=== PATIENT | female | born 1970 | race Caucasian/White ===

== ENCOUNTER 2018-10-29 10:33 | Emergency (ER) | payer OTHER ==
[~2018-10-29] VITALS: Ht 165.1 cm; Wt 72.6 kg
[2018-10-29 11:45] LABS: BASOPHILS ABSOLUTE AUTO 0.05 K/mm3 (0.00-0.23); BASOPHILS PERCENT AUTO 0 % (0-2); EOSINOPHILS ABSOLUTE AUTO 0.11 K/mm3 (0.00-0.68); EOSINOPHILS PERCENT AUTO 1 % (0-6); Hematocrit 40.1 % (33.0-51.0); Hemoglobin 12.9 g/dL (11.5-16.0); IMMATURE GRAN ABSOLUTE AUTO 0.06 K/mm3 (0.00-0.10); IMMATURE GRAN PERCENT AUTO 1 % (0-1); LYMPHOCYTES PERCENT AUTO 13 % (21-46); MONOCYTES ABSOLUTE AUTO 1.37 K/mm3 (0.16-1.47); MONOCYTES PERCENT AUTO 11 % (4-13); Mean Corpuscular HGB 30.3 pg (26.0-34.0); Mean Corpuscular HGB Conc 32.2 g/dL (31.5-36.5); Mean Corpuscular Volume 94 fL (80-100); Mean Platelet Volume 10.1 fL (9.1-12.4); NEUTROPHILS ABSOLUTE AUTO 8.89 K/mm3 (1.96-9.15); NEUTROPHILS PERCENT AUTO 74 % (41-73); Platelet Count 358 K/mm3 (150-400); RDW Coefficient Variation 13.2 % (11.7-14.2); RDW Standard Deviation 46.1 fL (35.1-46.3); Red Blood Cell Count 4.26 M/mm3 (3.80-5.20); White Blood Cell Count 11.98 K/mm3 (4.00-11.30)
[2018-10-29 12:07] LABS: Alanine Aminotransfer (ALT/SGP 26 U/L (12-78); Albumin, Blood 2.7 g/dL (3.4-5.0); Albumin/Globulin Ratio 0.7 (0.8-1.8); Alk Phos 80 U/L (50-136); Anion Gap 4 mmol/L (6-16); Aspartate Aminotrans (AST/SGOT 14 U/L (12-37); Bilirubin, Total 0.3 mg/dL (0.1-1.0); Blood Urea Nitrogen 12 mg/dL (8-24); Bun/Creatinine Ratio 16.3 (12.0-20.0); CO2, Blood 28 mmol/L (21-32); Calcium, Blood 8.3 mg/dL (8.5-10.1); Chloride, Blood 106 mmol/L (98-108); Creatinine, Blood 0.74 mg/dL (0.40-1.00); Globulin, Blood 3.8 g/dL (2.2-4.0); Glomerular Filtration Rate >60 (60-); Glucose, Blood 97 mg/dL (70-99); Potassium, Blood 3.8 mmol/L (3.5-5.5); Sodium, Blood 138 mmol/L (136-145); Total Protein, Blood 6.5 g/dL (6.4-8.2)
[2018-10-29] MEDS ORDERED: PRED10 PO (14:09)
== END 2018-10-29 14:24 | disposition home or self-care (01) ==
LOC: ER 10:33
PROVIDERS: Emergency Medicine
DX: K52.9 Noninfective gastroenteritis and colitis, unspecified (principal); F17.210 Nicotine dependence, cigarettes, uncomplicated
CPT/HCPCS: 74177; 80053; 85025; 96361-59; 96374-59; 96375-59; 99284-25; J2405; J3010; J7030; Q9967

== ENCOUNTER 2023-10-19 08:38 | Day surgery (SDC) | payer BC ==
[~2023-10-19] VITALS: Ht 167.6 cm; Wt 84.1 kg
[~2023-10-19 08:38] MED LIST: FentaNYL Citrate 50 MCG/ML 2 ML Injection ONE; Lactated Ringer's 1,000 ML IV ONE; Midazolam HCl 1MG / ML 2ML Vial ONE; PRED10 PO; Ropivacaine 0.5% HCl/Pf 5 MG/ML 20ML VIAL ONE; propofoL 20 ML IV ONE
[2023-10-19] MEDS ORDERED: Lactated Ringer's 1,000 ML IV ONE (09:17)
[2023-10-19] MEDS ORDERED: CeFAZolin Sodium 2,000 MG VIAL ONE (09:26)
[2023-10-19] MEDS ORDERED: NS 50 ML IV ONE (09:27)
--- NOTE | 2023-10-19 09:41 | NUR ---
10/19/23 Sheri Sanabria PT WASN'T ABLE TO TAKE OFF 2 RINGS. TAPE WAS PLACED TO R RING FINGER AND L RING FINGER. PT SIGNED THE CONSENT FORM AND WAS EDUCATED ON THE RISKS OF REFUSING TO REMOVE JEWELRY.
[2023-10-19] MEDS ORDERED: Ondansetron HCl 2 MG / ML 2ML Vial ONE (09:46)
[2023-10-19] MEDS ORDERED: Dexamethasone Sod Phos 10 MG/ML 1ML VIAL ONE (09:46)
[2023-10-19] MEDS ORDERED: EPINEPhrine HCl 1 MG/ML 1ML Amp XX ONE (10:03)
--- NOTE | 2023-10-19 10:04 | NUR ---
10/19/23 Kimberli4 Bekah Chris 0.1ML OF EPI 1MG/ML ADDED TO 20ML ROPIVICAINE 0.5% TO CREATE A LOCAL SOLUTION OF ROPIVICAINE 0.5% W/EPI 1:200,000.
[2023-10-19 10:45] VITALS: BP 141/99
--- NOTE | 2023-10-19 11:04 | NUR ---
10/19/23 1104 Jameson Rivas PT ADVISED TO MONITOR B/P AT HOME, AND FOLLOW UP WITH PCP NEEDED.
== END 2023-10-19 11:33 | disposition home or self-care (01) ==
LOC: ORSCSDS 08:38
PROVIDERS: Podiatrist Foot & Ankle Surgery
PROC: 0QPN04Z Removal of Internal Fixation Device from Right Metatarsal, Open Approach (ICD-10-PCS; principal; 2023-10-19 10:00)
PROC: 0QSN04Z Reposition Right Metatarsal with Internal Fixation Device, Open Approach (ICD-10-PCS; principal; 2023-10-19 10:00)
DX: M21.611 Bunion of right foot (principal); T84.119A Breakdown (mechanical) of internal fixation device of unspecified bone of limb, initial encounter; Z87.891 Personal history of nicotine dependence
CPT/HCPCS: C1713; J0171; J0690; J1100; J2250; J2405; J2704; J2795; J3010; J7120

== ENCOUNTER 2024-02-05 06:22 | Day surgery (SDC) | payer BC ==
[~2024-02-05] VITALS: Ht 165.1 cm; Wt 83.3 kg
[2024-02-05] VITALS (12 sets, daily range): BP systolic 96–144; BP diastolic 60–99
[~2024-02-05 06:22] MED LIST changes: +ACET325 PO; +Acetaminophen 500 MG Tab PO SCH; +CeFAZolin Sodium 2,000 MG in NS 100 ML IV SCH; +Chlorhexidine Mouth Care 15 ML UDC MT SCH; -FentaNYL Citrate 50 MCG/ML 2 ML Injection ONE; +IBUP400 PO; -Lactated Ringer's 1,000 ML IV ONE; +Lactated Ringer's 1,000 ML IV SCH; -Midazolam HCl 1MG / ML 2ML Vial ONE; +OxyCODONE HCL 10 MG TABCR PO SCH; +Ropivacaine 0.5% HCl/Pf 123.125 MG,EPINEPHrine HCL 0.25 MG,Ketorolac Tromethamine 15 MG... INFIL SCH; -Ropivacaine 0.5% HCl/Pf 5 MG/ML 20ML VIAL ONE; +VITAMIN D310 MC4 PO; -propofoL 20 ML IV ONE
--- NOTE | 2024-02-05 06:31 | NUR ---
PATIENT STATES SHE IS POST MENOPAUSE WITH NO PERIODS X6-7 YEARS. NO HCG INDICATED PER POLICY.
[2024-02-05] MEDS ORDERED: Tranexamic Acid 100 ML IV SCH (06:34)
[2024-02-05] MEDS ORDERED: Midazolam HCl 1MG / ML 2ML Vial IV SCH (07:25)
[2024-02-05] MEDS ORDERED: Midazolam HCl 1MG / ML 2ML Vial ONE (07:28)
[2024-02-05] MEDS ORDERED: propofoL 100 ML IV ONE (07:29)
--- NOTE | 2024-02-05 07:32 | NUR ---
History, Chart, Medications and Allergies reviewed before start of procedure. Patient confirms NPO status and agrees with scheduled surgery. Patient's right hand ring taped and waiver signed. Patient stored another ring in labeld bag and this was placed under gurney. Patient's walker brought to PACU for safe keeping during surgery since patient unacommanied with visitors. Discussed 20G IV access with Linda Shepherd CRNA. Unable to obtain 18G IV access due to small vein size.
[2024-02-05] MEDS ORDERED: propofoL 20 ML IV ONE (07:34)
[2024-02-05] MEDS ORDERED: Dexamethasone Sod Phos 10 MG/ML 1ML VIAL ONE (08:31)
[2024-02-05] MEDS ORDERED: Ondansetron HCl 2 MG / ML 2ML Vial ONE (08:31)
[2024-02-05] MEDS ORDERED: Phenylephrine HCl 100 MCG/ML-NS 10MLSYR (1MG/10ML) ONE (08:50)
[2024-02-05] MEDS ORDERED: OxyCODONE HCL 5 MG TAB PO PRN ×2 (09:30)
[2024-02-05] MEDS ORDERED: Promethazine HCl 25 MG Tab PO PRN (09:35)
[2024-02-05] MEDS ORDERED: Ondansetron HCl 2 MG / ML 2ML Vial IV PRN (09:35)
[2024-02-05] MEDS ORDERED: Prochlorperazine Edisylate 10 mg Vial IV PRN (09:35)
[2024-02-05] MEDS ORDERED: Bisacodyl 10 MG Supp PR PRN (09:35)
[2024-02-05] MEDS ORDERED: DiphenhydrAMINE HCL 25 MG Cap PO PRN (09:35)
[2024-02-05] MEDS ORDERED: FLU VACC TS2024-25(6MOS UP)/PF 45 MCG/0.5 ML SYRINGE IM SCH (09:40)
[2024-02-05] MEDS ORDERED: HYDROmorphone HCl/Pf 1MG SYR IV PRN (09:40)
[2024-02-05] MEDS ORDERED: Metoclopramide HCl 5MG / ML 2ML Vial IV PRN (09:40)
[2024-02-05] MEDS ORDERED: Magnesium Hydroxide Conc 10 ML UDC PO PRN (09:40)
[2024-02-05] MEDS ORDERED: Lactated Ringer's 1,000 ML IV SCH (09:40)
--- NOTE | 2024-02-05 10:00 | NUR ---
PACU TO 221 PT BROUGHT OUT TO HER ROOM FROM PACU ON HER BED, UNABLE TO FEEL OR WIGGLE HER TOES YET, POST OP VITALS STARTED, AQUACELL TO R KNEE C/D/I UNDER AN DANIEL WRAP, POLAR PACK IN PLACE, LS CLEAR T/O. NO PATIENT CONCERNS AT THIS TIME, DISCUSSED PLAN FOR TODAY WITH HER. NO QUESTIONS AT THIS TIME, PT RESTING IN BED.
[2024-02-05] MEDS ORDERED: Ketorolac Tromethamine 15mg Vial IV SCH (12:00)
[2024-02-05] MEDS ORDERED: CeFAZolin Sodium 2,000 MG in NS 100 ML IV SCH (16:00)
[2024-02-05] MEDS ORDERED: Acetaminophen 500 MG Tab PO SCH (16:00)
--- NOTE | 2024-02-05 17:58 | NUR ---
DISCHARGE SUMMARY POD0 R ANGELINA, A/OX4, VSS, TOLERATING PO, AMBULATED IN THE HALLS, WORKED WITH THERAPY WHO RECOMMENDED ANOTHER SESSION DUE TO HER HAVING SOME RESIDUAL NUMBNESS DURING HER SESSION TODAY. PT REPORTS WANTING TO GO HOME ANYWAY AND WAS ABLE TO WALK WITHOUT ANY DIFFICULTY, DISCUSSED MOBILITY WITH HER AND SHE REPORTS HAVING READ THE BOOK AND ABLE TO TEACH BACK HOW TO GO UP AND DOWN STAIRS. DISCUSSED DISCHARGE INSTRUCTIONS INCLUDING HOME CARE, MEDICATIONS, AND FOLLOW UP APPOINTMENTS, REMOVED IV ACCESS DURING DC INSTRUCTIONS. PT ESCORTED OUT VIA WC TO PRIVATE AUTO TO GO HOME.
[2024-02-05] MEDS ORDERED: Docusate Sodium 100 MG Cap PO SCH (21:00)
[2024-02-06] MEDS ORDERED: Apixaban 5 MG Tab PO SCH (09:00)
[2024-02-06] MEDS ORDERED: Cholecalciferol 400 unit Tab PO SCH (09:00)
== END 2024-02-05 17:40 | disposition home or self-care (01) ==
LOC: ORSCMMR 06:22 → ORD 07:30 → SURS 09:51 → ORSCMMR 17:40
PROVIDERS: Orthopaedic Surgery
PROC: 0SR90JZ Replacement of Right Hip Joint with Synthetic Substitute, Open Approach (ICD-10-PCS; principal; 2024-02-05 07:30)
DX: M16.11 Unilateral primary osteoarthritis, right hip (principal); E66.9 Obesity, unspecified
CPT/HCPCS: 72170; 97110; 97116; 97162; A9270; C1776; J0171; J0690; J0735; J1100; J1885; J2250; J2371; J2405; J2704; J2795; J7120